=== PATIENT | female | born 1930 | race African-American/Black ===

== ENCOUNTER 2017-03-09 09:54 | Emergency (ER) | payer OTHER ==
[~2017-03-09] VITALS: Ht 157.5 cm; Wt 52.2 kg
--- NOTE | ~2017-03-09 | EKG ---
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: : 1930 Requested By: Yanique Ayon Order Number: [id number] MD: Brian Saldivar Measurements Intervals [place] Rate: 69 P: 75 IN: 136 QRS: 72 QRSD: 85 T: 53 QT: 430 QTc: 461 Interpretive Statements Sinus rhythm Atrial premature complex Baseline wander in lead(s) V6 Compared to ECG 07/15/2009 10:40:42 Atrial premature complex(es) now present Electronically Signed On 03-10-2017 13:51:59 CDT by Brian Saldivar [email or web address] <ELECTRONICALLY SIGNED> By: Brian Saldivar MD 03/10/17 135 132 20 Brian Saldivar MD /SERENA
--- NOTE | ~2017-03-09 | EKG ---
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: : 1930 Requested By: Yanique Ayon Order Number: [id number] MD: Brian Saldivar Measurements Intervals [place] Rate: 83 P: 33 ID: 174 QRS: 1 QRSD: 91 T: 51 QT: 415 QTc: 488 Interpretive Statements Sinus rhythm LVH with secondary repolarization abnormality Borderline prolonged QT interval Baseline wander in lead(s) V2 Compared to ECG 07/15/2009 10:40:42 Left ventricular hypertrophy now present Early repolarization now present Electronically Signed On 03-10-2017 13:50:41 CDT by Brian Saldivar [email or web address] <ELECTRONICALLY SIGNED> By: Brian Saldivar MD 03/10/17 0784 1008 1008 Brian Saldivar MD /[facility]
[~2017-03-09 09:54] MED LIST: CARISOPRODOL 3350 MG PO; TRAMADOL 50 MG50 MG; ZOFRAN ODT4 MG PO
[2017-03-09 11:19] VITALS: BP 148/70
[2017-03-09] MEDS ORDERED: LIPITOR 20 MG T20 M1 PO (11:23)
[2017-03-09] MEDS ORDERED: PANTOPRAZOLE SO40 M1 PO (11:23)
[2017-03-09] MEDS ORDERED: HYDROXYCHLOROQ200 M1 PO (11:23)
[2017-03-09 11:31] LABS: BASOPHILS 0.3 % (0.0-2.0); EOSINOPHILS 6.9 % (0.0-3.0); HEMATOCRIT 38.2 % (37.0-47.0); HEMOGLOBIN 12.8 gm/dL (12.0-15.0); LYMPHOCYTES 25.7 % (24.0-44.0); MCH 30.5 pg (26.0-34.0); MCHC 33.5 g/dL (28.0-37.0); MCV 90.9 fL (80.0-100.0); MONOCYTES 11.2 % (1.0-8.0); PLATELET COUNT 316 thou/uL (150-400); POLYS 55.9 % (36.0-66.0); RDW 13.4 % (10.5-14.5); WBC 5.3 thou/uL (4.0-11.0)
[2017-03-09 11:34] LABS: MANUAL DIFF NO
[2017-03-09 11:42] LABS: ANION GAP 7 mmol/L (7-16); BUN 13 mg/dL (7-18); CALCIUM 8.8 mg/dL (8.5-10.1); CHLORIDE 105 mmol/L (98-107); CO2 27 mmol/L (21-32); CREATININE 1.7 mg/dL (0.6-1.0); GLUCOSE 103 mg/dL (74-106); POTASSIUM 4.2 mmol/L (3.5-5.1); SODIUM 139 mmol/L (136-145)
[2017-03-09 11:50] LABS: TROPONIN-I < 0.04 ng/mL (<0.04-0.07)
[2017-03-09] MEDS ORDERED: LIDODERM 5%1 PATC1 TRANSDERM (12:03)
== END 2017-03-09 12:04 | disposition home or self-care (01) ==
LOC: ER 09:54
PROVIDERS: Emergency Medicine
DX: M25.511 Pain in right shoulder (principal); M06.9 Rheumatoid arthritis, unspecified; E78.5 Hyperlipidemia, unspecified; K21.9 Gastro-esophageal reflux disease without esophagitis

== ENCOUNTER 2017-10-31 15:59 | Inpatient (IN) | payer OTHER ==
[~2017-10-31] VITALS: Ht 157.5 cm; Wt 54.4 kg
--- NOTE | ~2017-10-31 | EKG ---
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: [facility] : 1930 Requested By: Angela Gentile Order Number: [id number] MD: Kashmir Sharp Measurements Intervals [place] Rate: 97 P: 63 TX: 181 QRS: 2 QRSD: 86 T: 34 QT: 398 QTc: 506 Interpretive Statements Sinus rhythm Prolonged QT interval Compared to ECG 03/09/2017 13:21:26 Prolonged QT interval now present Electronically Signed On 11-01-2017 9:00:52 TECHNICIAN TERMINAL AND REPEATER by Kashmir Sharp [email or web address] <ELECTRONICALLY SIGNED> By: Kashmir Sharp MD, [facility] 11/01/17 0900 D: [id number] Kashmir Sharp MD, FACC /EPI
--- NOTE | ~2017-10-31 | HC ---
[facility] [place] [address] CONSULTATION Name: CHURCHMARTHA Room #: 403-P [facility] IN M.R.#: [id number] Admission: 10/31/17 Attend Phys: Dionte Molina MD Discharge: Date of : 30 Report #: [id number] THIS REPORT FOR: //name// CC: Dionte Bocanegra CHIEF COMPLAINT: Right hip pain. HISTORY OF PRESENT ILLNESS: The patient is a pleasant 87-year-old female, seen today for evaluation of her right hip. The patient reports that she was trying to sit in a recliner when it rolled backwards, and she sustained a fall. It sounds like she has also had another recent fall trying to get out of the recliner as well. The patient reports that she lives at home, although realized that she may need to live somewhere with more assistance. She denies loss of consciousness, although she did hit her face. PAST MEDICAL HISTORY: Significant for chronic kidney disease stage 3 per medicine's note. Closed head injury, facial hematoma, fall, shoulder pain, hyperlipidemia, rheumatoid arthritis. Spinal stenosis and GERD. ALLERGIES: No known drug allergies. CURRENT MEDICATIONS: Please see current MAR. SOCIAL HISTORY: The patient lives alone. Denies tobacco or alcohol use. PHYSICAL EXAMINATION: VITAL SIGNS: Most recent temperature 97.9, pulse 88, respirations 18, BP 135/59, O2 sats 98%. Height 5 feet 2 inches, weight 120 pounds. GENERAL: The patient is alert, oriented, answering questions appropriately. MUSCULOSKELETAL: The patient does not report any significant tenderness about the shoulder. She is actively able to move these while in bed. Denies any pain or tenderness about the elbows, wrists or hands. Pelvis is stable to AP and lateral compression. She is tender about the right hip globally, is lying in a flexed position. The distal thigh, knee, leg, foot and ankle are otherwise nontender. She is able to minimally flex and extend the toes. Mild foot and ankle swelling is noted. No obvious injuries to the left lower extremity are appreciated. LABORATORY DATA: Reviewed. Radiographs of the hip reveal a 3-part intertrochanteric femur fracture. Radiographs of the right shoulder read as negative. IMPRESSION: 1. Right hip pain, intertrochanteric femur fracture following fall. 2. Right shoulder pain, improving. 3. Multiple medical comorbidities. [address] [address] CONSULTATION Name: MARTHA DOLL Room #: 403-P [facility] IN M.R.#: [id number] Admission: 10/31/17 Attend Phys: Dionte Molina MD Discharge: Date of : 30 Report #: [id number] PLAN: We reviewed treatment options for the patient's right hip fracture. After discussing risks, benefits, alternatives and potential complications of her injury and treatment, the patient has elected to proceed with an intramedullary nailing when cleared from medical standpoint. At this point, her shoulder appears to be improving. We can have Therapy work with this as well as her hip. We discussed the usual or expected postoperative course for her hip. If she has more persistent symptoms about the shoulder in the future, we discussed that an MRI can be obtained. If the patient feels like she is unable to return home, we can have a social work lecturer and rn case manager visit with her about her needs going forward. Questions were encouraged, all were answered. We will proceed with operative treatment of her hip hopefully later today if possible. <ELECTRONICALLY SIGNED> By: Franck Bliss MD 11/01/17 1226 0748 0810 Franck Bliss MD /nt
--- NOTE | ~2017-10-31 | O ---
[facility] [place] [address] OPERATIVE REPORT Name: ORTHODOXMARTHA Hinojosa Room #: 403-P [facility] IN M.R.#: [id number] Admission: 10/31/17 Attend Phys: Dionte Molina MD Discharge: 11/04/17 Date of : 30 Report #: [id number] THIS REPORT FOR: //name// CC: Dionte Bocanegra DATE OF SERVICE: 11/01/2017 PREOPERATIVE DIAGNOSIS: Right hip intertrochanteric femur fracture, three-part. POSTOPERATIVE DIAGNOSIS: Right hip intertrochanteric femur fracture, three-part. PROCEDURE PERFORMED: Right intramedullary nailing of right intertrochanteric femur fracture. SURGEON: Franck Bliss M.D. CREATIVE STRATEGIST: Dianna Fuentes PA-C. ANESTHESIA: General. FLUIDS: 300 mL crystalloid. ESTIMATED BLOOD LOSS: Approximately 15 mL. IMPLANTS UTILIZED: Synthes short TFN nail 170 mm x 135 degrees x 11 mm, 90 mm helical blade, 34 mm distal locking screw. DESCRIPTION OF PROCEDURE: After proper identification of the patient and the operative site in preoperative holding area, the operative site was signed by myself. Prophylactic antibiotics given. The patient discussed anesthetic options with anesthesia including potential utilization of a block. The patient wished to proceed with the above. She was brought back to the operative suite after induction of satisfactory general anesthesia. She was carefully positioned on the [place] fracture table. The legs were scissored. Well padded boot foot suspension was utilized. Fracture reduction was checked in the AP, oblique, and lateral planes and deemed to be in satisfactory position. The right hip and thigh were sterilely prepped and draped in the usual manner and final skin draping was with an [place] isolation drape. An incision proximal to the greater trochanter was planned using C-arm. Skin was incised sharply. Full thickness skin flaps were developed. Fascia was incised. An insertional was placed about the tip of the greater trochanter. It was advanced into the proximal femur. Position was checked with C-arm. Next, an intramedullary guidewire was inserted into the femur and based on measurements, an 11 mm thick nail was chosen. This was a short nail. This was placed on the insertion [facility] [address] [place] [address] OPERATIVE REPORT Name: ORTHODOXMARTHA Micaela Room #: 403-P [facility] IN M.R.#: [id number] Admission: 10/31/17 Attend Phys: Dionte Molina MD Discharge: 11/04/17 Date of : 30 Report #: [id number], carefully impacted into position. Next, through a separate more distally based incision, drill sleeves were advanced to the lateral cortex of the femur fracture extending through the greater trochanter was noted with mild displacement as well as a fracture involving the lesser trochanter. Guidewire was inserted into the femoral head while checking in the AP and lateral planes. It was deemed to be in satisfactory position. Outer cortex was reamed. A 90 mm helical blade was chosen. It was carefully impacted into position. Proximal locking screw was tightened and next through a separate more distally based incision, a 34 mm locking screw was placed through the more distal aspect of the nail. Final implant images in the AP and lateral planes revealed satisfactory reduction of the fracture as well as hardware placement. The wounds were thoroughly irrigated with normal saline. Fascia was closed with 0 Vicryl, 2-0 Vicryl, the subcutaneous tissues. Final skin closure was with gia. Sterile dressing was applied. At time of dictation, the patient was still in the operative suite. Qualified minister assistant was utilized throughout the entire procedure to aid in patient limb positioning, visualization and retraction of the soft tissues, instrument passage closure and dressing application. <ELECTRONICALLY SIGNED> By: Franck Bliss MD 11/24/17 1014 1225 1239 Franck Bliss MD /nt
[~2017-10-31 15:59] MED LIST changes: +FLEXERIL PO; +HYDROXYCHLOROQ200 M1 PO; +IBUPROFEN 200200 M1 PO; +K-DUR 20 MEQ T20 MEQ PO; +LIDODERM 5%1 PATC1 TRANSDERM; +LIPITOR 20 MG T20 M1 PO; +NOHOMEMEDICATIONS; +NORCO 5-325 TA1 EACH PO; +PANTOPRAZOLE SO40 M1 PO; +ULTRAM 50MG TAB50 MG PO; +ZOFRAN4 MG PO
[2017-10-31 16:01] VITALS: BP 134/65
[2017-10-31 17:30] LABS: ABSOLUTE NEUTROPHILS 8.4 thou/uL (1.4-8.2); BASOPHILS 0.4 % (0.0-2.0); EOSINOPHILS 1.1 % (0.0-3.0); HEMATOCRIT 35.3 % (37.0-47.0); LYMPHOCYTES 7.9 % (24.0-44.0); MCH 31.5 pg (26.0-34.0); MCHC 33.9 g/dL (28.0-37.0); MCV 92.9 fL (80.0-100.0); MONOCYTES 8.8 % (1.0-8.0); PLATELET COUNT 271 thou/uL (150-400); POLYS 81.8 % (36.0-66.0); RDW 13.4 % (10.5-14.5); WBC 10.2 thou/uL (4.0-11.0)
[2017-10-31 17:39] LABS: CALCIUM 8.5 mg/dL (8.5-10.1); CREATININE 1.5 mg/dL (0.6-1.0); POTASSIUM 3.6 mmol/L (3.5-5.1)
[2017-10-31 17:41] LABS: PROTIME 10.6 Seconds (9.3-11.4)
[2017-10-31 20:04] VITALS: BP 151/85
[2017-11-01] VITALS (11 sets, daily range): BP systolic 118–159; BP diastolic 44–67
[2017-11-01 06:09] LABS: HEMATOCRIT 28.6 % (37.0-47.0); MCH 31.9 pg (26.0-34.0); MCHC 34.1 g/dL (28.0-37.0); MCV 93.5 fL (80.0-100.0); RBC 3.06 mil/uL (4.20-5.00); RDW 13.1 % (10.5-14.5); WBC 8.2 thou/uL (4.0-11.0)
[2017-11-01 06:12] LABS: HEMOGLOBIN 9.8 gm/dL (12.0-15.0)
[2017-11-01 06:20] LABS: CALCIUM 7.9 mg/dL (8.5-10.1); CREATININE 1.4 mg/dL (0.6-1.0); MAGNESIUM 1.6 mg/dL (1.8-2.4); POTASSIUM 4.4 mmol/L (3.5-5.1)
[2017-11-01 13:06] LABS: HEMATOCRIT 26.9 % (37.0-47.0); HEMOGLOBIN 9.2 gm/dL (12.0-15.0); MCH 31.9 pg (26.0-34.0); MCV 93.7 fL (80.0-100.0); RBC 2.87 mil/uL (4.20-5.00); RDW 12.8 % (10.5-14.5); WBC 10.8 thou/uL (4.0-11.0)
[2017-11-02 04:00] VITALS: BP 143/55
[2017-11-02 04:47] LABS: HEMATOCRIT 25.2 % (37.0-47.0); HEMOGLOBIN 8.5 gm/dL (12.0-15.0); MCH 31.7 pg (26.0-34.0); MCHC 33.6 g/dL (28.0-37.0); MCV 94.2 fL (80.0-100.0); RBC 2.67 mil/uL (4.20-5.00); RDW 13.3 % (10.5-14.5); WBC 10.4 thou/uL (4.0-11.0)
[2017-11-02 04:58] LABS: CALCIUM 7.8 mg/dL (8.5-10.1); CREATININE 1.5 mg/dL (0.6-1.0); MAGNESIUM 1.5 mg/dL (1.8-2.4); POTASSIUM 4.2 mmol/L (3.5-5.1)
[2017-11-02 07:33] VITALS: BP 154/76
[2017-11-02 20:00] VITALS: BP 100/71
[2017-11-03 04:00] VITALS: BP 134/56
[2017-11-03 06:06] LABS: HEMATOCRIT 22.1 % (37.0-47.0); HEMOGLOBIN 7.5 gm/dL (12.0-15.0); MCH 31.7 pg (26.0-34.0); MCHC 33.9 g/dL (28.0-37.0); MCV 93.6 fL (80.0-100.0); RBC 2.37 mil/uL (4.20-5.00); RDW 12.9 % (10.5-14.5); WBC 9.5 thou/uL (4.0-11.0)
[2017-11-03 06:14] LABS: CALCIUM 7.4 mg/dL (8.5-10.1); CREATININE 1.4 mg/dL (0.6-1.0); MAGNESIUM 1.6 mg/dL (1.8-2.4); POTASSIUM 4.3 mmol/L (3.5-5.1)
[2017-11-03 07:26] VITALS: BP 124/47
[2017-11-03 16:01] VITALS: BP 138/57
[2017-11-03 20:00] VITALS: BP 135/52
[2017-11-04 04:00] VITALS: BP 111/88
[2017-11-04 05:39] LABS: HEMATOCRIT 23.9 % (37.0-47.0); HEMOGLOBIN 7.8 gm/dL (12.0-15.0); MCH 30.7 pg (26.0-34.0); MCHC 32.8 g/dL (28.0-37.0); MCV 93.5 fL (80.0-100.0); RBC 2.56 mil/uL (4.20-5.00); RDW 12.9 % (10.5-14.5); WBC 12.4 thou/uL (4.0-11.0)
[2017-11-04 05:48] LABS: CALCIUM 7.9 mg/dL (8.5-10.1); CREATININE 1.4 mg/dL (0.6-1.0); MAGNESIUM 1.5 mg/dL (1.8-2.4); POTASSIUM 3.9 mmol/L (3.5-5.1)
[2017-11-04 09:38] VITALS: BP 135/52
[2017-11-04] MEDS ORDERED: HYDROCODON-ACE1 EAC7 PO (11:48)
[2017-11-04] MEDS ORDERED: MIRALAX17 GM PO (11:49)
== END 2017-11-04 14:10 | DRG 480 ==
LOC: ER 15:59 → 4N 17:39 → EROBS 17:39 → 4N 18:07
PROVIDERS: Internal Medicine; Physician Assistant; Physician Assistant Surgical
PROC: 0QH606Z Insertion of Intramedullary Internal Fixation Device into Right Upper Femur, Open Approach (ICD-10-PCS; principal; 2017-11-01)
DX: S72.141A Displaced intertrochanteric fracture of right femur, initial encounter for closed fracture (principal); E43 Unspecified severe protein-calorie malnutrition; E78.5 Hyperlipidemia, unspecified; N18.3 Chronic kidney disease, stage 3 (moderate); M06.9 Rheumatoid arthritis, unspecified; K21.9 Gastro-esophageal reflux disease without esophagitis; S09.90XA Unspecified injury of head, initial encounter; S00.83XA Contusion of other part of head, initial encounter; Z60.2 Problems related to living alone; Z79.899 Other long term (current) drug therapy; W18.39XA Other fall on same level, initial encounter; Y93.89 Activity, other specified; Y92.098 Other place in other non-institutional residence as the place of occurrence of the external cause; Y99.8 Other external cause status
CPT/HCPCS: 10091; 50010; 50101; 50386; 50635; 51412; 51538; 51817; 52145; 52146; 52304; 56525; 57092; 62110; 62900; 70005

== ENCOUNTER 2017-11-08 16:04 | Emergency (ER) | payer OTHER ==
[~2017-11-08] VITALS: Ht 160 cm; Wt 56.7 kg
[~2017-11-08 16:04] MED LIST changes: +HYDROCODON-ACE1 EAC7 PO; +MIRALAX17 GM PO
[2017-11-08] MEDS ORDERED: HYDROCODONE-AP1 EAC6 PO (16:13)
[2017-11-08] MEDS ORDERED: MIRALAX17 GM PO (16:13)
[2017-11-08] MEDS ORDERED: LIPITOR 20 MG T20 M1 PO (16:13)
[2017-11-08] MEDS ORDERED: HYDROXYCHLOROQ200 M1 PO (16:13)
[2017-11-08 17:18] LABS: HEMATOCRIT 23.1 % (37.0-47.0); HEMOGLOBIN 7.9 gm/dL (12.0-15.0); MCH 31.6 pg (26.0-34.0); MCV 92.9 fL (80.0-100.0); PLATELET COUNT 389 thou/uL (150-400); RBC 2.49 mil/uL (4.20-5.00); RDW 13.3 % (10.5-14.5); WBC 8.5 thou/uL (4.0-11.0)
[2017-11-08 17:27] LABS: CALCIUM 8.1 mg/dL (8.5-10.1); CREATININE 1.6 mg/dL (0.6-1.0); POTASSIUM 4.7 mmol/L (3.5-5.1)
[2017-11-08 17:33] LABS: ALBUMIN 2.5 g/dL (3.4-5.0); TOTAL BILIRUBIN 0.7 mg/dL (<0.1-1.0)
[2017-11-08 17:40] VITALS: BP 127/41
[2017-11-08 17:47] LABS: POLYCHROMASIA 1+
== END 2017-11-08 18:44 | disposition home or self-care (01) ==
LOC: ER 16:04
PROVIDERS: Physician Assistant
DX: S72.002D Fracture of unspecified part of neck of left femur, subsequent encounter for closed fracture with routine healing (principal); X58.XXXD Exposure to other specified factors, subsequent encounter; Z96.642 Presence of left artificial hip joint; M19.90 Unspecified osteoarthritis, unspecified site

== ENCOUNTER 2019-07-14 13:53 | Emergency (ER) | payer OTHER ==
[~2019-07-14] VITALS: Ht 157.5 cm; Wt 57.6 kg
[~2019-07-14 13:53] MED LIST changes: +HYDROCODONE-AP1 EAC6 PO
[2019-07-14 14:47] LABS: ABSOLUTE NEUTROPHILS 4.6 thou/uL (1.4-8.2); EOSINOPHILS 3.8 % (0.0-3.0); HEMATOCRIT 39.5 % (37.0-47.0); HEMOGLOBIN 13.1 gm/dL (12.0-15.0); LYMPHOCYTES 21.3 % (24.0-44.0); MCH 30.9 pg (26.0-34.0); MCHC 33.3 g/dL (28.0-37.0); MONOCYTES 10.9 % (1.0-8.0); PLATELET COUNT 326 thou/uL (150-400); RBC 4.24 mil/uL (4.20-5.00); RDW 13.2 % (10.5-14.5); WBC 7.2 thou/uL (4.0-11.0)
[2019-07-14 14:47] LABS: URINE BILIRUBIN NEGATIVE (Negative); URINE BLOOD NEGATIVE (Negative); URINE CLARITY CLEAR; URINE COLOR YELLOW; URINE GLUCOSE-RANDOM* NEGATIVE (Negative); URINE KETONES NEGATIVE (Negative); URINE LEUKOCYTES-REFLEX 1+ (Negative); URINE NITRITE-REFLEX NEGATIVE (Negative); URINE PROTEIN (DIPSTICK) NEGATIVE (Negative); URINE UROBILINOGEN 0.2 E.U./dl (0.2-1.0)
[2019-07-14 14:56] LABS: CREATININE 1.9 mg/dL (0.6-1.0); POTASSIUM 3.8 mmol/L (3.5-5.1)
[2019-07-14 15:02] LABS: ALBUMIN 3.1 g/dL (3.4-5.0); TOTAL BILIRUBIN 0.4 mg/dL (<0.1-1.0)
[2019-07-14 15:03] LABS: BACTERIA-REFLEX 1-9 Few /HPF (None Seen); CASTS None Seen /LPF (None Seen); CRYSTALS None Seen /LPF (None Seen); SQUAMOUS 0-3 Few /LPF (0-3); URINE RBC None Seen /HPF (0-2); URINE WBC-REFLEX None Seen /HPF (0-5)
[2019-07-14 16:47] VITALS: BP 145/75
== END 2019-07-14 16:48 | disposition home or self-care (01) ==
LOC: ER 13:53
PROVIDERS: Nurse Practitioner Family
DX: R10.31 Right lower quadrant pain (principal); M19.90 Unspecified osteoarthritis, unspecified site; Z90.49 Acquired absence of other specified parts of digestive tract; Z98.890 Other specified postprocedural states; Z85.850 Personal history of malignant neoplasm of thyroid